=== PATIENT | female | born 1960 | race Caucasian/White ===

== ENCOUNTER 2018-02-27 08:45 | Day surgery (SDC) | payer OTHER ==
[2018-02-20 12:29] VITALS: BMI 26.9
[2018-02-27] MEDS ORDERED: PROPOFOL 20 ML ONE ×2 (09:13)
[2018-02-27] MEDS ORDERED: GLYCOPYRROLATE 0.2 MG/1 ML VIAL ONE (11:30)
[2018-02-27 12:01] VITALS: TEMP 97.8
[2018-02-27 12:45] VITALS: BP 93/61; PULSE 85
--- NOTE | 2018-03-01 14:35 | PATH ---
Surgical Pathology Report Patient Name: [facility]. Rec. #: [id number] /Age/Gender: 1960 (Age: 57) / F Account: [id number] Location: [facility] Taken: 02/27/2018 Received: 02/27/2018 Reported: 03/01/2018 Physicians: Carmen Cabello M.D. Specimen(s) Received BIOPSY DESCENDING COLON POLYPS Clinical History Abdominal pain Postoperative diagnosis: Polyps Final Diagnosis DESCENDING COLON, POLYPS, BIOPSY: HYPERPLASTIC POLYP. COLONIC MUCOSA WITH PROMINENT LYMPHOID AGGREGATE. Electronically Signed Carmen Ramirez M.D. Gross Description Received in formalin, labeled "descending colon polyps" are 4 painter, irregular portions of soft tissue ranging in size from 0.1-0.2 cm. in greatest dimension. The specimens are submitted in toto in one cassette. TED/02/28/2018 chris/02/28/2018
== END 2018-02-27 12:44 | disposition home or self-care (01) ==
LOC: FASU-ENDO 08:45
PROVIDERS: ATTEND Internal Medicine Gastroenterology
PROC: 0DBN8ZX Excision of Sigmoid Colon, Via Natural or Artificial Opening Endoscopic, Diagnostic (ICD-10-PCS; principal; 2018-02-27 10:45)
DX: K63.5 Polyp of colon (principal); R93.3 Abnormal findings on diagnostic imaging of other parts of digestive tract; K57.30 Diverticulosis of large intestine without perforation or abscess without bleeding

== ENCOUNTER 2022-08-23 11:08 | Day surgery (SDC) | payer OTHER ==
[2022-08-21 14:57] VITALS: BMI 22.3
[2022-08-23] MEDS ORDERED: PROPOFOL 20 ML ONE (12:23)
[2022-08-23 13:15] VITALS: BP 102/67; PULSE 66; RESP 19; TEMP 97.5
== END 2022-08-23 13:15 | disposition home or self-care (01) ==
LOC: FASU-ENDO 11:08
PROVIDERS: ATTEND Internal Medicine Gastroenterology
PROC: 0DB68ZX Excision of Stomach, Via Natural or Artificial Opening Endoscopic, Diagnostic (ICD-10-PCS; 2022-08-23)
PROC: 0DB48ZX Excision of Esophagogastric Junction, Via Natural or Artificial Opening Endoscopic, Diagnostic (ICD-10-PCS; 2022-08-23)
PROC: 0DB98ZX Excision of Duodenum, Via Natural or Artificial Opening Endoscopic, Diagnostic (ICD-10-PCS; principal; 2022-08-23 12:27)
DX: K29.50 Unspecified chronic gastritis without bleeding (principal); K21.00 Gastro-esophageal reflux disease with esophagitis, without bleeding; K31.9 Disease of stomach and duodenum, unspecified; B96.81 Helicobacter pylori [H. pylori] as the cause of diseases classified elsewhere; R10.13 Epigastric pain
CPT/HCPCS: 88305-TC; 88342-TC

== ENCOUNTER 2023-09-12 08:49 | Day surgery (SDC) | payer OTHER ==
[2023-09-10 09:22] VITALS: BMI 23.3
[2023-09-12 09:13] VITALS: RESP 18
[2023-09-12] MEDS ORDERED: PROPOFOL 120 ML ONE (09:29)
[2023-09-12] MEDS ORDERED: LIDOCAINE HCL/PF 2% SDV 5ML VIAL ONE (09:29)
[2023-09-12] MEDS ORDERED: GLYCOPYRROLATE 0.2 MG/1 ML VIAL ONE (11:04)
[2023-09-12 11:33] VITALS: TEMP 98.1
[2023-09-12 12:12] VITALS: BP 101/76; PULSE 81
== END 2023-09-12 12:15 | disposition home or self-care (01) ==
LOC: FASU-ENDO 08:49
PROVIDERS: ATTEND Internal Medicine Gastroenterology
PROC: 0DJD8ZZ Inspection of Lower Intestinal Tract, Via Natural or Artificial Opening Endoscopic (ICD-10-PCS; principal; 2023-09-12 10:57)
DX: Z12.11 Encounter for screening for malignant neoplasm of colon (principal); K64.1 Second degree hemorrhoids; K64.8 Other hemorrhoids; K57.30 Diverticulosis of large intestine without perforation or abscess without bleeding; R10.84 Generalized abdominal pain